=== PATIENT | male | born 1960 | race Caucasian/White ===

== ENCOUNTER 2016-12-06 08:56 | Emergency (ER) | payer SELFPAY ==
[~2016-12-06] VITALS: Ht 170.1 cm; Wt 902.6 kg
[~2016-12-06 08:56] MED LIST: DAYPRO600 M1 PO; FLEXERIL10 MG PO; IBUPROFEN600 MG PO; VICODIN 5/500 505 MG PO; VICODIN 500 MG-1 TAB PO
[2016-12-06 10:01] LABS: BASO # 0.1 10*3/uL (0.0-0.1); BASO % 0.9 % (0.0-1.0); EOS # 0.4 10*3/uL (0.0-0.4); EOS % 6.6 % (1.0-4.0); HEMATOCRIT 46.2 % (42.0-52.0); HEMOGLOBIN 15.8 g/dl (14.0-18.0); LYMPH # 2.3 10*3/uL (1.3-4.4); MEAN CELL VOLUME 93.5 fl (80.0-94.0); MEAN CORPUSCULAR HGB CONC 34.2 g/dl (33.0-37.0); MEAN PLATELET VOLUME 9.6 fl (9.6-12.3); MONO # 0.5 10*3/uL (0.1-1.0); NEUT # 2.6 10*3/uL (2.3-7.9); NEUT % 44.2 % (47.0-73.0); PLATELET COUNT AUTOMATED 212 10*3/uL (130-400); RED BLOOD COUNT 4.94 10*6/uL (4.50-5.90); RED CELL DISTRI WIDTH 12.4 % (0-14.5); WHITE BLOOD COUNT 5.9 10*3/uL (4.8-10.8)
[2016-12-06 10:13] LABS: BILIRUBIN NEGATIVE (NEGATIVE); BLOOD NEGATIVE (NEGATIVE); CLARITY CLEAR (CLEAR); COLOR YELLOW (YELLOW); GLUCOSE NEGATIVE (NEGATIVE); KETONE NEGATIVE (NEGATIVE); LEUKO ESTERASE NEGATIVE (NEGATIVE); NITRITE NEGATIVE (NEGATIVE); SPECIFIC GRAVITY <= 1.005 (1.005-1.030); UROBILINOGEN 0.2 E.U./dl (0.2-1.0)
[2016-12-06 10:15] LABS: ALBUMIN 3.7 gm/dl (3.1-4.5); ALKALINE PHOSPHATASE 65 U/L (45-117); BUN 10 mg/dl (7-24); CHLORIDE 106 mmol/L (98-107); CREATININE 1.05 mg/dL (0.70-1.30); POTASSIUM 4.3 mmol/L (3.5-5.1); SGOT/AST 20 IU/L (3-35); SGPT/ALT 34 U/L (12-78); SODIUM 139 mmol/L (136-145); TOTAL PROTEIN 7.2 gm/dL (6.4-8.2)
[2016-12-06] MEDS ORDERED: NAPROSYN500 MG PO (10:55)
== END 2016-12-06 11:28 | disposition home or self-care (01) ==
LOC: ED 08:56
PROVIDERS: Nurse Practitioner
DX: N43.3 Hydrocele, unspecified (principal); F17.200 Nicotine dependence, unspecified, uncomplicated

== ENCOUNTER → 2020-01-28 | Outpatient (CLI) | payer SELFPAY ==
[~2020-01-28] MED LIST changes: +NAPROSYN500 MG PO
== END | disposition home or self-care (01) ==
LOC: COVID19 10:59
PROVIDERS: ATTEND Internal Medicine
DX: Z20.828 Contact with and (suspected) exposure to other viral communicable diseases (principal)

== ENCOUNTER 2023-03-06 09:42 | Emergency (ER) | payer SELFPAY ==
[~2023-03-06] VITALS: Ht 170.1 cm; Wt 83.9 kg
[2023-03-06] MEDS ORDERED: VIBRA-TAB100 MG PO (10:22)
== END 2023-03-06 10:29 | disposition home or self-care (01) ==
LOC: ED 09:42
DX: S80.212A Abrasion, left knee, initial encounter (principal); S80.211A Abrasion, right knee, initial encounter; X58.XXXA Exposure to other specified factors, initial encounter; Y93.89 Activity, other specified; Y92.89 Other specified places as the place of occurrence of the external cause; Y99.8 Other external cause status

== ENCOUNTER → 2023-12-04 | Outpatient (CLI) | payer SELFPAY ==
[~2023-12-04] MED LIST changes: +VIBRA-TAB100 MG PO
[2023-12-04 16:55] LABS: BILIRUBIN Negative (Negative); BLOOD Negative (Negative); CLARITY Clear (Clear); COLOR Yellow (Yellow); GLUCOSE Negative (Negative); KETONE 1+ (Negative); LEUKO ESTERASE Negative (Negative); NITRITE Negative (Negative); PH 5.5 (4.5-8.0); SPECIFIC GRAVITY 1.015 (1.001-1.030)
[2023-12-04 17:05] LABS: BACTERIA TRACE
== END | disposition home or self-care (01) ==
LOC: RAD 14:58 → LAB 14:58
PROVIDERS: ATTEND Nurse Practitioner Family
DX: R10.9 Unspecified abdominal pain (principal)

== ENCOUNTER 2024-12-06 04:57 | Emergency (ER) | payer SELFPAY ==
[~2024-12-06] VITALS: Ht 167.6 cm; Wt 86.2 kg
[2024-12-06 06:00] LABS: BUN 9 mg/dl (9-23); SGPT/ALT 30 U/L (5-49)
[2024-12-06] MEDS ORDERED: hydrALAZINE hydrochloride 20 MG/ML VIAL IV ONE (06:00)
[2024-12-06 06:05] LABS: BASO # 0.0 10*3/uL (0.0-0.1); BASO % 0.6 % (0.0-1.0); EOS # 0.1 10*3/uL (0.0-0.4); EOS % 1.1 % (1.0-4.0); MEAN CELL VOLUME 93.3 fl (80.0-94.0); MEAN CORPUSCULAR HGB 32.0 pg (27.0-31.0); MEAN PLATELET VOLUME 9.4 fl (9.6-12.3); MONO # 0.6 10*3/uL (0.1-1.0); MONO % 8.9 % (3.0-9.0); NEUT # 3.9 10*3/uL (2.3-7.9); NEUT % 61.7 % (47.0-73.0); NUCLEATED RED BLOOD CELL 0.0 % (0.0-0.0); NUCLEATED RED BLOOD CELL 0.0 10*3/uL (0.0-0.0); PLATELET COUNT AUTOMATED 228 10*3/uL (130-400); RED CELL DISTRI WIDTH 12.3 % (0-14.5)
[2024-12-06] MEDS ORDERED: IOHEXOL 350 MG/ML 100 ML VIAL IV ONE ×2 (08:35→08:57)
[2024-12-06] MEDS ORDERED: SODIUM CHLORIDE 0.9% 100 ML BAG IV ONE (08:35)
[2024-12-06] MEDS ORDERED: SODIUM CHLORIDE 0.9% 100 ML IV ONE (08:57)
== END 2024-12-06 10:27 | disposition home or self-care (01) ==
LOC: ED 04:57
PROVIDERS: Emergency Medicine
DX: R07.89 Other chest pain (principal); R20.2 Paresthesia of skin; M54.6 Pain in thoracic spine

== ENCOUNTER → 2024-12-12 | Outpatient (CLI) | payer SELFPAY | END | disposition home or self-care (01) | LOC: RESCLI 08:42 | PROVIDERS: ATTEND Family Medicine | DX: R20.2 Paresthesia of skin (principal); I10 Essential (primary) hypertension ==